=== PATIENT | female | born 1950 | race Caucasian/White ===

== ENCOUNTER 2017-10-04 18:51 | Emergency (ER) | payer MEDICARE, OTHER ==
[~2017-10-04] VITALS: Ht 167.6 cm; Wt 93.0 kg
[2017-10-04] MEDS ORDERED: SODIUM CHLORIDE 0.9% 1,000 ML IV ONE (19:44)
[2017-10-04] MEDS ORDERED: DILTIAZEM 125mg/125ml BAG KIT 125 ML IV ONE (20:00)
[2017-10-04] MEDS ORDERED: DILTIAZEM HCL 25 MG/5 ML VIAL IV ONE (20:00)
[2017-10-04 20:22] LABS: Basophils # (auto) 0.1 uL; Basophils % (auto) 1.1 % (0.0-2.0); Eosinophils # (auto) 0.4 uL; Hematocrit 41.9 % (36.0-46.0); Hemoglobin 13.9 g/dL (12.2-16.2); Lymphocytes # (auto) 2.9 uL; Lymphocytes % (auto) 30.1 % (10.0-50.0); Mean Corpuscular Hemoglobin 30.4 pg (28.0-32.0); Mean Corpuscular Hgb Conc. 33.2 g/dL (32.0-36.0); Mean Corpuscular Volume 91.4 fL (80.0-100.0); Monocytes # (auto) 1.2 uL; Monocytes % (auto) 12.2 % (0.0-12.0); Neutrophils # (auto) 5.1 uL; Neutrophils % (auto) 52.6 % (37.0-80.0); Platelet Count (auto) 423 10^3/uL (140-450); Red Blood Cells 4.59 10^6/uL (4.0-5.20); Red Cell Distribution Width 13.8 % (11.8-14.3); White Blood Cell 9.8 10^3/uL (4.4-10.8)
[2017-10-04 20:34] LABS: INR 1.05 (0.9-1.15); Partial Thromboplastin Time 35.9 sec (22.64-33.71); Prothrombin Time 11.4 sec (9.37-12.3)
[2017-10-04 20:36] LABS: Potassium 3.8 mmol/L (3.5-5.1)
[2017-10-04 20:37] LABS: BUN/Creatinine Ratio 21.7; Calcium 8.4 mg/dL (8.5-10.1)
[2017-10-04 20:38] LABS: Albumin 3.7 g/dL (3.4-5.0); Bilirubin, Total 0.4 mg/dL (0.2-1.0); Total Protein 7.5 g/dL (6.4-8.2)
[2017-10-04 21:09] LABS: Magnesium 2.4 mg/dL (1.6-2.6)
[2017-10-04] MEDS ORDERED: CALCTAB25 PO (21:52)
[2017-10-04] MEDS ORDERED: MELO1TAB56 PO (21:56)
[2017-10-04] MEDS ORDERED: HYDR200T PO (21:56)
[2017-10-04] MEDS ORDERED: METH2.5T3 PO (21:56)
[2017-10-04] MEDS ORDERED: FOL5I PO (21:56)
[2017-10-04] MEDS ORDERED: DILT240C PO ×2 (21:56)
[2017-10-04] MEDS ORDERED: OXY5T GT (21:56)
[2017-10-04 22:15] VITALS: BP 124/84
== END 2017-10-04 22:37 | disposition home or self-care (01) ==
LOC: ER 18:51 → EDBD 18:51 → ER 22:24
DX: I48.91 Unspecified atrial fibrillation (principal); I10 Essential (primary) hypertension; Z90.49 Acquired absence of other specified parts of digestive tract; Z91.041 Radiographic dye allergy status; Z79.899 Other long term (current) drug therapy
CPT/HCPCS: 36415; 71045; 80053; 83735; 83880; 84484; 85025; 85610; 85730; 94761; 96360; 96361; 99285; J7030; 93005